=== PATIENT | female | born 1995 | race Caucasian/White ===

== ENCOUNTER 2019-03-19 14:50 | Emergency (ER) | payer SELFPAY ==
[2019-03-19 14:59] VITALS: BP 121/81; PULSE 97; RESP 18; TEMP 36.9; O2SAT 100
[2019-03-19] MEDS: ACETAMINOPHEN 325 MG TABLET 650 MG PO (17:23)
[2019-03-19] MEDS: PROPARACAINE 0.5% OPHTH SOL 1 DROPS EYE-LEFT (17:23)
[2019-03-19] MEDS: BACITRACIN OINT 0.9 GM PCKT 1 APPLIC TOP (17:24)
[2019-03-19] MEDS: FLUORESCEIN 1 MG STRIP EYE-LEFT (17:24)
--- NOTE | 2019-03-19 17:27 | ED_ITS ---
HPI - Eye Problem <RUKHSANA Ruiz - Last Filed: 03/20/19 00:41> General Chief complaint: Eye Problems Stated complaint: hit eye on face, couldn't see, bleeding Time Seen by Provider: 03/19/19 16:58 Source: patient Mode of arrival: Ambulatory Limitations: no limitations History of Present Illness HPI Narrative: Is a 23-year-old female, smoker, who presents to ED with friends with chief complain of left eye injury. Patient states she accidentally ran into the car door and hit her left eye. Patient denies vision change but noticed redness and bleeding behind the lower eyelid. Patient reports could not see for the 1st 10-20 seconds immediately after the direct trauma to the affected eye but this has resolved and denies visual changes or decreased vision. Patient feels some irritation on affected eye when she moves her eyes. Patient states her tetanus immunization is up to date at this time. Review of Systems <RUKHSANA Ruiz - Last Filed: 03/20/19 00:41> Review of Systems Narrative: General: Denies fever, chills, fatigue, malaise, sweats. HEENT: See HPI Respiratory: Denies dyspnea, cough, wheezing, hemoptysis, sputum. Cardiovascular: Denies chest pain, palpitations, orthopnea, edema. Gastrointestinal: Denies nausea, vomiting, abdominal pain, diarrhea, constipation, melena. : Denies dysuria, frequency, incontinence, hematuria, urinary retention. Musculoskeletal: Denies weakness, joint pain or bony pain. Skin: Denies rash, skin lesions, or other. Neurologic: Denies weakness, headache, numbness, change in speech, confusion, seizures, incoordination. Psychiatric: No concerning psychosocial issues. 12-point review of systems is negative except for those stated above. Patient History <RUKHSANA Ruiz - Last Filed: 03/20/19 00:41> Medical History No significant past medical history (Acute) Surgical History No pertinent past surgical history (Acute) Social History Smoking Status: Current every day smoker Smoking Status: Current every day smoker Exam <RUKHSANA Ruiz - Last Filed: 03/20/19 00:41> Narrative Exam Narrative: General appearance: well developed, well nourished, in no acute distress. Head: normocephalic, atraumatic, no scalp lesions, non-tender. ENT: Hearing grossly intact. Nose without bleeding, purulent discharge, septal hematoma or deviation. Turbinate without erythema or swelling. Facial sinuses nontender to palpate. Mucous membrane moist, no mucosal lesion. Throat without erythema, tonsillar hypertrophy or exudate. Uvula in midline, airway patent. PERRAL, EOM intact, + subconjunctival hemorrhage on left lower eye. Peripheral vision is intact and is able to read fingers held in front of her. IOP with tonopen average 12. No uptake noted with fluorescein in Left conjunctiva. No hyphema noted. Neck/Thyroid: neck supple, full range of motion, no visible masses or meningeal signs. No JVD, non-tender without lymphadenopathy. Skin: about 1-2 mm superfical abrasion was noted in Left inner corner and lateral eye. no suspicious rashes, lesions over visible areas. Warm and dry and appropriate color for ethnicity. Heart: no clubbing, no cyanosis, no edema. S1 and S2 normal. RRR w/o murmurs, clicks, or bruits. Lungs: Breathing even and unlabored. No stridor. No accessory muscles used. Able to speak in full sentences. Chest: normal shape and expansion. Abdomen: non-obese, non-distended. Neurologic: alert and oriented. Cognitive exam, [employer] and PNS grossly intact on informal exam. Psych: good eye contact, normal affect. Initial Vital Signs Initial Vital Signs: Vital Signs Temperature 98.5 F 03/19/19 14:59 Pulse Rate 97 H 03/19/19 14:59 Respiratory Rate 18 03/19/19 14:59 Blood Pressure 121/81 03/19/19 14:59 Pulse Oximetry 100 03/19/19 14:59 <Robert Raphael MD - Last Filed: 03/21/19 21:23> Initial Vital Signs Initial Vital Signs: Vital Signs Temperature 98.5 F 03/19/19 14:59 Pulse Rate 97 H 03/19/19 14:59 Respiratory Rate 18 03/19/19 14:59 Blood Pressure 121/81 03/19/19 14:59 Pulse Oximetry 100 03/19/19 14:59 Scores <Jama RUKHSANA Pina - Last Filed: 03/20/19 00:41> GCS [place] coma scale eye opening: Spontaneous [place] coma scale verbal response: Orientated Bert coma scale motor response: Obey commands [place] coma scale total score: 15 Course <Jama RUKHSANA Pina - Last Filed: 03/20/19 00:41> Orders Ordered: Discontinued Medications Acetaminophen (Tylenol) 650 mg PO NOW ONE Stop: 03/19/19 17:11 Last Admin: 03/19/19 17:23 Dose: 650 mg Documented by: LYRIC Bacitracin (Bacitracin) 1 applic TOP NOW ONE Stop: 03/19/19 17:22 Last Admin: 03/19/19 17:24 Dose: 1 applic Documented by: LYRIC Fluorescein Sodium (Ful-Ivory) 1 mg EYE-LEFT NOW ONE Stop: 03/19/19 17:11 Last Admin: 03/19/19 17:24 Dose: 1 mg Documented by: LYRIC Proparacaine HCl (Parcaine 0.5% Ophth Kaylie) 1 drops EYE-LEFT NOW ONE Stop: 03/19/19 17:11 Last Admin: 03/19/19 17:23 Dose: 2 drop Documented by: LYRIC Vital Signs Vital signs: Vital Signs - 8 hr 03/19/19 17:31 Pulse Rate 91 H Blood Pressure [Left Arm] 123/80 <Robert Raphael MD - Last Filed: 03/21/19 21:23> Orders Ordered: Discontinued Medications Acetaminophen (Tylenol) 650 mg PO NOW ONE Stop: 03/19/19 17:11 Last Admin: 03/19/19 17:23 Dose: 650 mg Documented by: LYRIC Bacitracin (Bacitracin) 1 applic TOP NOW ONE Stop: 03/19/19 17:22 Last Admin: 03/19/19 17:24 Dose: 1 applic Documented by: LYRIC Fluorescein Sodium (Ful-Ivory) 1 mg EYE-LEFT NOW ONE Stop: 03/19/19 17:11 Last Admin: 03/19/19 17:24 Dose: 1 mg Documented by: LYRIC Proparacaine HCl (Parcaine 0.5% Ophth Kaylie) 1 drops EYE-LEFT NOW ONE Stop: 03/19/19 17:11 Last Admin: 03/19/19 17:23 Dose: 2 drop Documented by: LYRIC Vital Signs Vital signs: Vital Signs - 8 hr 03/19/19 17:31 Pulse Rate 91 H Blood Pressure [Left Arm] 123/80 MDM - Eye Problem <Jama Nomi-Rosie AERODYNAMICIST - Last Filed: 03/20/19 00:41> Differential Diagnosis Differential diagnosis: Likely corneal abrasion, hyphema and subconjunctival hemorrhage Medical Records Attestation: I reviewed the patient's medical records. [facility] Narrative Medical decision making narrative: Eye exam revealed subconjunctival hemorrhage on left lower eye. EMOI, intact peripheral lesion, PERRLA, no foreign body or corneal abrasion was noted with fluorescein exam. IOP averaging 12 via Alex- Pen. Patient denies decreased vision or visual changes and was able to read fingers held in front of her well. Affected eye irrigated with normal saline gently prior to discharging to home. Patient was medicated with Tylenol for mild discomfort and small linear abrasion was treated with bacitracin. Strict return precautions were discussed with the patient and patient verbalized understanding and informed that subconjunctival hemorrhage will resolve as time passes usually will in about 2 weeks. Patient verbalized understanding and agrees with the treatment plan. Discharge Plan Departure Patient Disposition: Home Clinical Impression: Subconjunctival hemorrhage of left eye Contusion of eye, left Qualifiers: Encounter type: initial encounter Qualified Code(s): S05.12XA - Contusion of eyeball and orbital tissues, left eye, initial encounter Discharge Date/Time: 03/19/19 17:39 Instructions: DI for Eye Contusion, DI for Subconjunctival Hemorrhage Activity Restrictions/Additional Instructions: You have been diagnosed with [ contusion to L eye and subconjunctival hemorrhage. Your vision is intact and there was no abrasion noted during exam. Your eye pressure is within normal.]. What to do: *Take your medications as directed. You can take [id number] Tylenol 650 mg up to 4 times a day as needed for discomfort. You can use cool pack on affected site for discomfort as well. *Follow up with your primary care provider in 2-3 days, call for an appointment. I have provided [facility] phone number for you to arrange PCP. Let them know you were seen in the ED and that we asked you to be seen in follow up. As time goes by the bruise and redness in her eye should be subsiding. ENT doctor follow-up as needed. *Return to ED if you have any new, worsening, or concerning symptoms, such as [chest pain, breathing difficulty, unable to tolerate fluids, decreased vision, severe pain or any acute concerns]. Referrals: [facility] [Outside] Eagle Connor MD [Physician] -
[2019-03-19 17:31] VITALS: BP 123/80; PULSE 91
== END 2019-03-19 17:39 | disposition home or self-care (01) ==
PROVIDERS: Emergency Provider Nurse Practitioner Family
DX: H11.32 Conjunctival hemorrhage, left eye (principal); S05.12XA Contusion of eyeball and orbital tissues, left eye, initial encounter; W22.8XXA Striking against or struck by other objects, initial encounter
CPT/HCPCS: 99283

== ENCOUNTER → 2019-07-24 10:14 | Outpatient (CLI) | payer OTHER, MEDICAID, SELFPAY ==
--- NOTE | 2019-07-24 10:16 | DI.US.S_ITS ---
PROCEDURE: US OB <= 14 WEEKS FETUS INDICATIONS: DATES OUTSIDE/PRIOR DATING DATA: Last menstrual period (LMP): Unknown. LMP-based estimated date of delivery (TYLER): Unknown. First dating scan (date and location): 07/24/19. Estimated date of delivery (TYLER) from first dating scan: 02/10/20. TECHNIQUE: Real-time scanning was performed of the fetus and maternal pelvic organs, with image documentation. Endovaginal scanning was also performed to better visualize the fetus and maternal ovaries. COMPARISON: None. FINDINGS: Embryo: A single live intrauterine is seen. The measured heart rate is 173 beats per minute. The crown-rump length measures 4.5 cm, corresponding to an estimated gestational age of 11 weeks 2 days. It is too early for detailed anatomic assessment. By visual inspection, the amount of amniotic fluid is within normal limits. No significant findings of subchorionic/perigestational hemorrhage are seen. Measurement variability in dating: +/- 4 weeks by LMP, +/- 7 days by mean sac diameter (use before 6 weeks gestation if crown-rump length not able to be measured), +/- 5 days by crown-rump length (up to 8 weeks 6 days gestation), +/- 7 days by crown-rump length (up to 13 weeks 6 days gestation). Maternal organs: Ovaries are unremarkable, with an apparent left corpus luteum. A small amount of free fluid is seen within the cul-de-sac. Limited images through the kidneys demonstrate no hydronephrosis. IMPRESSION: A single live intrauterine is seen. The estimated gestational age is 11 weeks 2 days, which corresponds to an estimated date of delivery of 02/10/20. Dictated by: Hasmukh Rosales M.D. on 07/24/2019 at 10:56 Approved by: Hasmukh Rosales M.D. on 07/24/2019 at 10:58
== END ==
PROVIDERS: PCP Family Medicine; Referring Provider Family Medicine; Visit Provider Family Medicine
DX: Z34.01 Encounter for supervision of normal first pregnancy, first trimester (principal); Z3A.11 11 weeks gestation of pregnancy
CPT/HCPCS: 76801; 76817

== ENCOUNTER → 2019-07-25 15:59 | Outpatient (CLI) | payer OTHER, MEDICAID, SELFPAY ==
[2019-07-25 17:23] LABS: Appearance Urine UA CLEAR; Bilirubin Urine UA NEGATIVE (NEGATIVE); Color Urine UA YELLOW; Glucose Urine UA TRACE g/dL (Negative); Ketones Urine UA NEGATIVE (NEGATIVE); Leukocyte Esterase Urine UA TRACE (NEGATIVE); Nitrite Urine UA NEGATIVE (Negative); Occult Blood Urine UA NEGATIVE (Negative); Protein Urine UA NEGATIVE (Negative); Specific Gravity Urine UA 1.025 (1.000-1.035)
[2019-07-25 17:24] LABS: pH Urine UA 5.5 (4.5-8.0)
[2019-07-25 17:25] LABS: RBC Urine None Seen (0-5/HPF)
[2019-07-25 17:27] LABS: Add Manual Diff / Slide Review NO; Basophils Absolute Auto 100 /uL (0-100); Basophils Percent Auto 0.5 % (0-2); Eosinophils Absolute Auto 100 /uL (0-450); Eosinophils Percent Auto 1.2 % (2-4); Hematocrit 34.6 % (36-46); Hemoglobin 11.8 g/dL (12.0-16.0); Lymphocytes Absolute Auto 2200 /uL (1100-4500); Lymphocytes Percent Auto 18.6 % (25-40); Mean Corpuscular HGB Conc 34.1 % (30-36); Mean Corpuscular Volume 85.1 fL (80-100); Monocytes Absolute Auto 700 /uL (0-900); Monocytes Percent Auto 5.7 % (3-14); Neutrophils Absolute Auto 8700 /uL (1500-7000); Platelet Count 418 X10^3/uL (150-400); Red Blood Cell Count 4.06 X10^6/uL (4.0-5.2); Red Cell Distribution Width 13.6 % (11.6-14.8); White Blood Cell Count 11.8 X10^3/uL (4.5-11.0)
[2019-07-25 18:05] LABS: Bacteria Urine Few (2-10); Squamous Epithelial Cell Urine 10-30 /HPF (0-5/HPF); Urine Comments CULTURE ORDERED; WBC Urine 0-1/HPF (0-5/HPF)
[2019-07-26 16:14] LABS: RPR Screen Non Reactive (Non Reactive); Varicella IgG Antibody 1895 index (Immune >165)
[2019-07-26 16:35] LABS: Rubella Antibody IgG 5.2 IU/mL (>15)
[2019-07-26 16:40] LABS: Hepatitis B Surface Antigen NEGATIVE s/c (NEGATIVE)
[2019-07-26 16:51] LABS: HIV 1 & 2 Ab/Ag 4th Gen Combo NEGATIVE (NEGATIVE)
[2019-07-26 16:55] LABS: Hep C Virus Ab w/Reflex Quant NEGATIVE s/c (NEGATIVE)
== END ==
PROVIDERS: PCP Family Medicine; Referring Provider Family Medicine; Visit Provider Family Medicine
DX: Z34.01 Encounter for supervision of normal first pregnancy, first trimester (principal)
CPT/HCPCS: 36415; 80055; 81003; 81015; 86787; 86803; 86850; 86900; 86901; 87077; 87086; 87389